=== PATIENT | male | born 1950 | race African-American/Black ===

== ENCOUNTER 2020-04-22 11:04 | Inpatient (IN) | payer MEDICARE, OTHER ==
[~2020-04-22] VITALS: Ht 170.2 cm; Wt 92.5 kg
[~2020-04-22 11:04] MED LIST: AMLO-258 PO; ATEN-72 PO; DICY20 PO; GEMF600T5 PO; GLYB5 PO; HYDR10TA31 PO; OMEP10 PO; PANT-31 PO; PIOG15TA69 PO
[2020-04-22] MEDS ORDERED: NORT10 PO (11:19)
[2020-04-22] MEDS ORDERED: LIDO35.44 TP (11:19)
[2020-04-22] MEDS ORDERED: GLIP10 PO (11:19)
[2020-04-22] MEDS ORDERED: OMEG-178 PO (11:19)
[2020-04-22] MEDS ORDERED: ALFU10TA30 PO (11:19)
[2020-04-22] MEDS ORDERED: CHOL100018 PO (11:19)
[2020-04-22] MEDS ORDERED: CETI1SOL83 PO (11:19)
[2020-04-22] MEDS ORDERED: HYDR-2924 PO (11:19)
[2020-04-22] MEDS ORDERED: MECLIZINE HCL 25 MG TABLET PO ONE (12:30)
[2020-04-22] MEDS ORDERED: SODIUM CHLORIDE 0.9% 500 ML IV ONE (12:30)
[2020-04-22 13:01] LABS: BASOPHILS % (AUTO) 0.8 % (0.0-2.0); EOSINOPHILS % (AUTO) 6.6 % (1.0-6.0); HEMATOCRIT 42.7 % (41-53); HEMOGLOBIN 13.6 g/dL (13.5-17.5); LYMPHOCYTES # (AUTO) 1.1 K/uL (1.0-4.8); LYMPHOCYTES % (AUTO) 26.1 % (22.0-44.0); MEAN CORPUSCULAR HEMOGLOBIN 22.3 pg (26.0-34.0); MEAN CORPUSCULAR HGB CONC 31.8 G/dL (31.0-37.0); MEAN CORPUSCULAR VOLUME 70 fL (80-100); MONOCYTES # (AUTO) 0.5 K/uL (0.1-1.0); MONOCYTES % (AUTO) 11.5 % (2.0-9.0); NEUTROPHILS # (AUTO) 2.2 K/uL (1.8-7.7); PLATELET COUNT (AUTO) 287 K/uL (150-450); RED BLOOD CELL COUNT(AUTO) 6.08 MIL/uL (4.50-5.90); RED CELL DISTRIBUTION WIDTH 16.6 % (11.5-14.5)
[2020-04-22 13:10] LABS: ANION GAP 7 mmol/L (8-16); CALCIUM, TOTAL 8.9 mg/dL (8.8-10.5); CARBON DIOXIDE 30 mmol/L (22-29); CHLORIDE 103 mmol/L (98-107); CREATININE 1.18 mg/dL (0.60-1.30); GLUCOSE,RANDOM 85 mg/dL (70-110); SODIUM SERUM 140 mmol/L (136-145); UREA NITROGEN, BLOOD 9 mg/dL (7-18)
[2020-04-22 13:11] LABS: GLOMERULAR FILTR. RATE CALC > 60 mL/min (>60)
[2020-04-22 13:13] LABS: PROTHROMBIN TIME 10.8 SEC (9.4-11.6)
[2020-04-22] MEDS ORDERED: LORazepam 1 MG TABLET PO ONE (13:30)
[2020-04-22 13:34] LABS: ALANINE AMINOTRANSFERASE 21 U/L (12-78); ALBUMIN 3.4 g/dL (3.4-5.0); ALKALINE PHOSPHATASE 53 U/L (46-116); ASPARTATE AMINOTRANSFERASE 17 U/L (15-37); BILIRUBIN,TOTAL 0.4 mg/dL (0.1-1.0); CREATINE KINASE, TOTAL ONLY 178 U/L (39-308); TOTAL PROTEIN, SERUM 7.2 g/dL (6.4-8.2)
[2020-04-22] MEDS ORDERED: ACETAMINOPHEN 500 MG TABLET PO ONE (13:45)
[2020-04-22] MEDS ORDERED: ONDANSETRON HCL 4 MG/2 ML VIAL IVP PRN ×2 (14:00→20:45)
[2020-04-22] MEDS ORDERED: 0.9% SODIUM CHLORIDE 10 ML SYRINGE IVP PRN (14:00)
[2020-04-22] MEDS ORDERED: ACETAMINOPHEN 325 MG TABLET PO PRN ×2 (14:00→20:45)
[2020-04-22 14:32] LABS: B-TYPE NATRIURETIC PEPTIDE 242 pg/mL (0-100)
[2020-04-22 14:41] LABS: APPEARANCE,URINE CLEAR (CLEAR); BILIRUBIN,URINE NEGATIVE (NEGATIVE); GLUCOSE, URINE (UA) NEGATIVE (NEGATIVE); KETONES,URINE NEGATIVE (NEGATIVE); LEUKOCYTE ESTERASE ,URINE NEGATIVE (NEGATIVE); NITRATE,URINE NEGATIVE (NEGATIVE); OCCULT BLOOD,URINE NEGATIVE (NEGATIVE); PROTEIN,URINE NEGATIVE (NEGATIVE)
[2020-04-22] MEDS ORDERED: LORazepam 2 MG/ML VIAL IVP ONE (15:15)
[2020-04-22 16:58] VITALS: BP 153/73
[2020-04-22 19:50] VITALS: BP 147/82
[2020-04-22] MEDS ORDERED: ALBUTEROL SULFATE 2.5 MG/0.5 ML NEB SOLUTION NEB PRN (20:45)
[2020-04-22] MEDS ORDERED: MAGNESIUM HYDROXIDE SUSPENSION 30 ML UDCUP PO PRN (20:45)
[2020-04-22] MEDS ORDERED: ZOLPIDEM TARTRATE 5 MG TABLET PO PRN (20:45)
[2020-04-22] MEDS ORDERED: MORPHINE SULFATE 2 MG/ML SYRINGE IVP PRN (20:45)
[2020-04-22] MEDS ORDERED: BISACODYL 10 MG RECTAL RECTAL SUPPOSITORY PR PRN (20:45)
[2020-04-22] MEDS ORDERED: IPRATROPIUM BROMIDE 0.5 MG/2.5 ML NEB SOLUTION NEB PRN (20:45)
[2020-04-22] MEDS: DOCUSATE SODIUM 100 MG CAPSULE PO SCH (21:00)
[2020-04-22 23:29] VITALS: BP 142/88
[2020-04-22] MEDS: HydrALAZINE HCL 50 MG TABLET PO SCH (23:45)
[2020-04-22] MEDS: HEPARIN SODIUM,PORCINE 5,000 UNITS/ML VIAL SQ SCH (23:45)
[2020-04-22] MEDS: NORTRIPTYLINE HCL 10 MG CAPSULE PO SCH (23:45)
[2020-04-23 04:29] VITALS: BP 141/74
[2020-04-23] MEDS: GlipiZIDE 10 MG TABLET PO SCH (05:30)
[2020-04-23 06:32] LABS: BASOPHILS % (AUTO) 0.9 % (0.0-2.0); EOSINOPHILS % (AUTO) 8.8 % (1.0-6.0); HEMATOCRIT 40.7 % (41-53); LYMPHOCYTES # (AUTO) 1.3 K/uL (1.0-4.8); MEAN CORPUSCULAR HEMOGLOBIN 22.4 pg (26.0-34.0); MEAN CORPUSCULAR VOLUME 70 fL (80-100); MONOCYTES # (AUTO) 0.5 K/uL (0.1-1.0); MONOCYTES % (AUTO) 10.3 % (2.0-9.0); NEUTROPHILS # (AUTO) 2.2 K/uL (1.8-7.7); PLATELET COUNT (AUTO) 285 K/uL (150-450); RED CELL DISTRIBUTION WIDTH 16.3 % (11.5-14.5)
[2020-04-23 06:55] LABS: ALANINE AMINOTRANSFERASE 17 U/L (12-78); ALBUMIN 2.9 g/dL (3.4-5.0); ALKALINE PHOSPHATASE 44 U/L (46-116); ANION GAP 7 mmol/L (8-16); ASPARTATE AMINOTRANSFERASE 15 U/L (15-37); BILIRUBIN,TOTAL 0.4 mg/dL (0.1-1.0); CALCIUM, TOTAL 8.6 mg/dL (8.8-10.5); CARBON DIOXIDE 29 mmol/L (22-29); CHLORIDE 104 mmol/L (98-107); CREATININE 1.06 mg/dL (0.60-1.30); GLUCOSE,RANDOM 119 mg/dL (70-110); SODIUM SERUM 140 mmol/L (136-145); TOTAL PROTEIN, SERUM 6.5 g/dL (6.4-8.2); UREA NITROGEN, BLOOD 10 mg/dL (7-18)
[2020-04-23 07:09] LABS: GLOMERULAR FILTR. RATE CALC > 60 mL/min (>60)
[2020-04-23 08:01] VITALS: BP 156/104
[2020-04-23] MEDS: ASPIRIN 81 MG EC TABLET PO SCH (08:20)
[2020-04-23] MEDS: PIOGLITAZONE HCL 15 MG TABLET PO SCH (08:20)
[2020-04-23] MEDS: OMEGA-3/DHA/EPA/FISH OIL 1,000 MG CAPSULE PO SCH (08:20)
[2020-04-23] MEDS: HEPARIN SODIUM,PORCINE 5,000 UNITS/ML VIAL SQ SCH ×2 (08:20→15:13)
[2020-04-23] MEDS: DOCUSATE SODIUM 100 MG CAPSULE PO SCH ×2 (08:20→21:44)
[2020-04-23] MEDS: CHOLECALCIFEROL (VIT D3) 2,000 UNITS [50 MCG] TABLET PO SCH (08:20)
[2020-04-23] MEDS: HydrALAZINE HCL 50 MG TABLET PO SCH ×2 (08:21→21:44)
[2020-04-23] MEDS: PANTOPRAZOLE SODIUM 40 MG DR TABLET PO SCH (08:21)
[2020-04-23] MEDS ORDERED: CETIRIZINE HCL 10 MG TABLET PO SCH (09:00)
[2020-04-23] MEDS ORDERED: LORazepam 2 MG/ML VIAL IVP ONE ×2 (10:00→10:30)
[2020-04-23] MEDS ORDERED: MECLIZINE HCL 25 MG TABLET PO PRN (10:00)
[2020-04-23 13:00] VITALS: BP 145/93
[2020-04-23 16:03] VITALS: BP 153/90
[2020-04-23] MEDS ORDERED: CETI-450 PO (18:02)
[2020-04-23 19:46] VITALS: BP 149/85
[2020-04-23] MEDS: NORTRIPTYLINE HCL 10 MG CAPSULE PO SCH (21:44)
[2020-04-24] VITALS (7 sets, daily range): BP systolic 132–159; BP diastolic 64–97
[2020-04-24] MEDS: HEPARIN SODIUM,PORCINE 5,000 UNITS/ML VIAL SQ SCH ×3 (00:53→15:32)
[2020-04-24 05:51] LABS: BASOPHILS % (AUTO) 0.9 % (0.0-2.0); EOSINOPHILS % (AUTO) 7.4 % (1.0-6.0); HEMATOCRIT 41.2 % (41-53); HEMOGLOBIN 13.2 g/dL (13.5-17.5); MEAN CORPUSCULAR HEMOGLOBIN 22.5 pg (26.0-34.0); MEAN CORPUSCULAR HGB CONC 32.2 G/dL (31.0-37.0); MEAN CORPUSCULAR VOLUME 70 fL (80-100); MONOCYTES # (AUTO) 0.7 K/uL (0.1-1.0); MONOCYTES % (AUTO) 12.7 % (2.0-9.0); NEUTROPHILS # (AUTO) 2.6 K/uL (1.8-7.7); PLATELET COUNT (AUTO) 282 K/uL (150-450); RED BLOOD CELL COUNT(AUTO) 5.88 MIL/uL (4.50-5.90); RED CELL DISTRIBUTION WIDTH 16.2 % (11.5-14.5)
[2020-04-24] MEDS: GlipiZIDE 10 MG TABLET PO SCH (06:21)
[2020-04-24 06:46] LABS: ALANINE AMINOTRANSFERASE 18 U/L (12-78); ALBUMIN 2.9 g/dL (3.4-5.0); ALKALINE PHOSPHATASE 45 U/L (46-116); ANION GAP 8 mmol/L (8-16); ASPARTATE AMINOTRANSFERASE 12 U/L (15-37); BILIRUBIN,TOTAL 0.3 mg/dL (0.1-1.0); CALCIUM, TOTAL 8.9 mg/dL (8.8-10.5); CARBON DIOXIDE 28 mmol/L (22-29); CHLORIDE 104 mmol/L (98-107); CREATININE 1.24 mg/dL (0.60-1.30); GLUCOSE,RANDOM 116 mg/dL (70-110); POTASSIUM 3.9 mmol/L (3.5-5.1); SODIUM SERUM 140 mmol/L (136-145); TOTAL PROTEIN, SERUM 6.5 g/dL (6.4-8.2); UREA NITROGEN, BLOOD 16 mg/dL (7-18)
[2020-04-24 06:50] LABS: GLOMERULAR FILTR. RATE CALC > 60 mL/min (>60)
[2020-04-24] MEDS: PIOGLITAZONE HCL 15 MG TABLET PO SCH (08:13)
[2020-04-24] MEDS: ASPIRIN 81 MG EC TABLET PO SCH (08:13)
[2020-04-24] MEDS: DOCUSATE SODIUM 100 MG CAPSULE PO SCH ×2 (08:13→20:11)
[2020-04-24] MEDS: HydrALAZINE HCL 50 MG TABLET PO SCH ×2 (08:13→20:11)
[2020-04-24] MEDS: CETIRIZINE HCL 10 MG TABLET PO SCH (08:13)
[2020-04-24] MEDS: OMEGA-3/DHA/EPA/FISH OIL 1,000 MG CAPSULE PO SCH (08:13)
[2020-04-24] MEDS: CHOLECALCIFEROL (VIT D3) 2,000 UNITS [50 MCG] TABLET PO SCH (08:13)
[2020-04-24] MEDS: PANTOPRAZOLE SODIUM 40 MG DR TABLET PO SCH (08:13)
[2020-04-24] MEDS: HYDROCODONE/ACETAMINOPHEN 5-325 MG TABLET PO PRN (20:11)
[2020-04-24] MEDS: NORTRIPTYLINE HCL 10 MG CAPSULE PO SCH (20:11)
[2020-04-25] MEDS: HEPARIN SODIUM,PORCINE 5,000 UNITS/ML VIAL SQ SCH ×3 (00:56→16:08)
[2020-04-25 04:54] VITALS: BP 136/70
[2020-04-25] MEDS: GlipiZIDE 10 MG TABLET PO SCH (06:53)
[2020-04-25 07:22] VITALS: BP 139/83
[2020-04-25] MEDS: OMEGA-3/DHA/EPA/FISH OIL 1,000 MG CAPSULE PO SCH (08:10)
[2020-04-25] MEDS: ASPIRIN 81 MG EC TABLET PO SCH (08:11)
[2020-04-25] MEDS: CETIRIZINE HCL 10 MG TABLET PO SCH (08:11)
[2020-04-25] MEDS: CHOLECALCIFEROL (VIT D3) 2,000 UNITS [50 MCG] TABLET PO SCH (08:11)
[2020-04-25] MEDS: DOCUSATE SODIUM 100 MG CAPSULE PO SCH ×2 (08:11→21:00)
[2020-04-25] MEDS: PANTOPRAZOLE SODIUM 40 MG DR TABLET PO SCH (08:11)
[2020-04-25] MEDS: HydrALAZINE HCL 50 MG TABLET PO SCH ×2 (08:11→21:01)
[2020-04-25] MEDS: PIOGLITAZONE HCL 15 MG TABLET PO SCH (08:11)
[2020-04-25 11:17] VITALS: BP 151/83
[2020-04-25 16:04] VITALS: BP 143/93
[2020-04-25] MEDS: DiphenhydrAMINE HCL 25 MG CAPSULE PO SCH ×2 (16:08→21:01)
[2020-04-25] MEDS: MethylPREDNISolone SOD SUCC 125 MG/2 ML VIAL IVP SCH (16:08)
[2020-04-25 19:30] VITALS: BP 149/84
[2020-04-25] MEDS ORDERED: FAMOTIDINE 20 MG TABLET PO SCH (21:00)
[2020-04-25] MEDS: NORTRIPTYLINE HCL 10 MG CAPSULE PO SCH (21:01)
[2020-04-25] MEDS: HYDROCODONE/ACETAMINOPHEN 5-325 MG TABLET PO PRN (21:05)
[2020-04-25 21:27] LABS: COVID AG,FIA SOURCE NASOPHARYNGEAL
[2020-04-25 23:26] VITALS: BP 151/79
[2020-04-26] VITALS (18 sets, daily range): BP systolic 146–173; BP diastolic 71–93
[2020-04-26] MEDS: MethylPREDNISolone SOD SUCC 125 MG/2 ML VIAL IVP SCH (00:13)
[2020-04-26 06:14] LABS: BASOPHILS % (AUTO) 0.1 % (0.0-2.0); EOSINOPHILS % (AUTO) 0 % (1.0-6.0); HEMATOCRIT 43.3 % (41-53); HEMOGLOBIN 13.7 g/dL (13.5-17.5); LYMPHOCYTES # (AUTO) 0.8 K/uL (1.0-4.8); LYMPHOCYTES % (AUTO) 9.4 % (22.0-44.0); MEAN CORPUSCULAR HEMOGLOBIN 22.3 pg (26.0-34.0); MEAN CORPUSCULAR HGB CONC 31.7 G/dL (31.0-37.0); MEAN CORPUSCULAR VOLUME 70 fL (80-100); MONOCYTES # (AUTO) 0.1 K/uL (0.1-1.0); MONOCYTES % (AUTO) 0.7 % (2.0-9.0); NEUTROPHILS # (AUTO) 7.3 K/uL (1.8-7.7); PLATELET COUNT (AUTO) 280 K/uL (150-450); RED BLOOD CELL COUNT(AUTO) 6.15 MIL/uL (4.50-5.90); RED CELL DISTRIBUTION WIDTH 16.1 % (11.5-14.5)
[2020-04-26] MEDS: GlipiZIDE 10 MG TABLET PO SCH (06:19)
[2020-04-26 06:33] LABS: INR 1.1 (0.9-1.1); PROTHROMBIN TIME 11.2 SEC (9.4-11.6)
[2020-04-26 06:51] LABS: ALANINE AMINOTRANSFERASE 15 U/L (12-78); ALBUMIN 3.2 g/dL (3.4-5.0); ALKALINE PHOSPHATASE 40 U/L (46-116); ANION GAP 10 mmol/L (8-16); ASPARTATE AMINOTRANSFERASE 19 U/L (15-37); BILIRUBIN,TOTAL 0.4 mg/dL (0.1-1.0); CALCIUM, TOTAL 9.4 mg/dL (8.8-10.5); CARBON DIOXIDE 25 mmol/L (22-29); CHLORIDE 103 mmol/L (98-107); CREATININE 0.93 mg/dL (0.60-1.30); GLOMERULAR FILTR. RATE CALC > 60 mL/min (>60); GLUCOSE,RANDOM 156 mg/dL (70-110); POTASSIUM 4.4 mmol/L (3.5-5.1); SODIUM SERUM 138 mmol/L (136-145); TOTAL PROTEIN, SERUM 7.4 g/dL (6.4-8.2); UREA NITROGEN, BLOOD 16 mg/dL (7-18)
[2020-04-26 06:55] LABS: NEUTROPHILS % (AUTO) 89.8 % (40.0-70.0)
[2020-04-26] MEDS ORDERED: FentaNYL CITRATE-PF 100 MCG/2 ML VIAL ONE (07:18)
[2020-04-26] MEDS ORDERED: MIDAZOLAM HCL 2 MG/2 ML VIAL ONE (07:18)
[2020-04-26] MEDS ORDERED: VERAPAMIL HCL 2.5 MG/ML 2 ML VIAL ONE (07:18)
[2020-04-26] MEDS ORDERED: NITROGLYCERIN 50 MG/D5% WATER 0 ML ONE (07:18)
[2020-04-26] MEDS ORDERED: IOHEXOL 300 MG/ML 150 ML VIAL ONE (07:19)
[2020-04-26] MEDS ORDERED: SODIUM BICARBONATE 50 MEQ/50 ML VIAL ONE (07:19)
[2020-04-26] MEDS ORDERED: LIDOCAINE/PF 1% 30 ML VIAL ONE (07:19)
[2020-04-26] MEDS ORDERED: HEPARIN SODIUM 1000 UNITS/NS 1,000 ML ONE (07:19)
[2020-04-26] MEDS: HEPARIN SODIUM,PORCINE 5,000 UNITS/ML VIAL SQ SCH ×4 (07:38→23:41)
[2020-04-26] MEDS: DiphenhydrAMINE HCL 25 MG CAPSULE PO SCH (07:39)
[2020-04-26] MEDS ORDERED: HEPARIN SODIUM 2,000 UNITS in HEPARIN SODIUM 1000 UNITS/NS 1,000 ML IARTER ONE (08:17)
[2020-04-26] MEDS ORDERED: IOHEXOL 300 MG/ML 150 ML VIAL IARTER ONE (08:30)
[2020-04-26] MEDS ORDERED: LIDOCAINE 1% 30 ML/SOD BICARB 8.4% 4 ML SQ ONE (08:30)
[2020-04-26] MEDS: PIOGLITAZONE HCL 15 MG TABLET PO SCH (09:23)
[2020-04-26] MEDS: DOCUSATE SODIUM 100 MG CAPSULE PO SCH ×2 (09:23→20:35)
[2020-04-26] MEDS: HydrALAZINE HCL 50 MG TABLET PO SCH (09:23)
[2020-04-26] MEDS: CETIRIZINE HCL 10 MG TABLET PO SCH (09:23)
[2020-04-26] MEDS: PANTOPRAZOLE SODIUM 40 MG DR TABLET PO SCH (09:23)
[2020-04-26] MEDS: OMEGA-3/DHA/EPA/FISH OIL 1,000 MG CAPSULE PO SCH (09:23)
[2020-04-26] MEDS: ASPIRIN 81 MG EC TABLET PO SCH (09:23)
[2020-04-26] MEDS: CHOLECALCIFEROL (VIT D3) 2,000 UNITS [50 MCG] TABLET PO SCH (09:23)
[2020-04-26] MEDS: HYDROCODONE/ACETAMINOPHEN 5-325 MG TABLET PO PRN (12:17)
[2020-04-26] MEDS: LISINOPRIL 5 MG TABLET PO SCH (17:02)
[2020-04-26] MEDS: HydrALAZINE HCL 25 MG TABLET PO SCH ×2 (17:04→21:15)
[2020-04-26] MEDS: ATORVASTATIN CALCIUM 40 MG TABLET PO SCH (17:04)
[2020-04-26] MEDS ORDERED: CARVEDILOL 3.125 MG TABLET PO SCH (21:00)
[2020-04-26] MEDS: NORTRIPTYLINE HCL 10 MG CAPSULE PO SCH (21:03)
[2020-04-27] VITALS (13 sets, daily range): BP systolic 132–161; BP diastolic 36–86
[2020-04-27 06:00] LABS: BASOPHILS % (AUTO) 0.1 % (0.0-2.0); EOSINOPHILS % (AUTO) 0 % (1.0-6.0); HEMATOCRIT 40.7 % (41-53); HEMOGLOBIN 13.1 g/dL (13.5-17.5); LYMPHOCYTES # (AUTO) 1.9 K/uL (1.0-4.8); MEAN CORPUSCULAR HEMOGLOBIN 22.4 pg (26.0-34.0); MEAN CORPUSCULAR HGB CONC 32.2 G/dL (31.0-37.0); MEAN CORPUSCULAR VOLUME 70 fL (80-100); MONOCYTES # (AUTO) 0.9 K/uL (0.1-1.0); MONOCYTES % (AUTO) 6.7 % (2.0-9.0); NEUTROPHILS % (AUTO) 78.2 % (40.0-70.0); PLATELET COUNT (AUTO) 274 K/uL (150-450); RED BLOOD CELL COUNT(AUTO) 5.85 MIL/uL (4.50-5.90)
[2020-04-27 06:12] LABS: INR 1.1 (0.9-1.1); PROTHROMBIN TIME 11.1 SEC (9.4-11.6)
[2020-04-27] MEDS: GlipiZIDE 10 MG TABLET PO SCH (06:30)
[2020-04-27 06:49] LABS: ALANINE AMINOTRANSFERASE 24 U/L (12-78); ALBUMIN 3.1 g/dL (3.4-5.0); ALKALINE PHOSPHATASE 40 U/L (46-116); ANION GAP 8 mmol/L (8-16); ASPARTATE AMINOTRANSFERASE 22 U/L (15-37); BILIRUBIN,TOTAL 0.3 mg/dL (0.1-1.0); CALCIUM, TOTAL 9.2 mg/dL (8.8-10.5); CARBON DIOXIDE 27 mmol/L (22-29); CHLORIDE 103 mmol/L (98-107); CREATININE 1.19 mg/dL (0.60-1.30); GLUCOSE,RANDOM 131 mg/dL (70-110); POTASSIUM 4.1 mmol/L (3.5-5.1); SODIUM SERUM 138 mmol/L (136-145); TOTAL PROTEIN, SERUM 6.6 g/dL (6.4-8.2); UREA NITROGEN, BLOOD 28 mg/dL (7-18)
[2020-04-27 06:55] LABS: GLOMERULAR FILTR. RATE CALC > 60 mL/min (>60)
[2020-04-27] MEDS: HEPARIN SODIUM,PORCINE 5,000 UNITS/ML VIAL SQ SCH ×3 (08:00→23:13)
[2020-04-27] MEDS: CHOLECALCIFEROL (VIT D3) 2,000 UNITS [50 MCG] TABLET PO SCH (11:03)
[2020-04-27] MEDS: PANTOPRAZOLE SODIUM 40 MG DR TABLET PO SCH (11:03)
[2020-04-27] MEDS: DOCUSATE SODIUM 100 MG CAPSULE PO SCH ×2 (11:03→20:34)
[2020-04-27] MEDS: CETIRIZINE HCL 10 MG TABLET PO SCH (11:03)
[2020-04-27] MEDS: CARVEDILOL 6.25 MG TABLET PO SCH ×2 (11:03→20:34)
[2020-04-27] MEDS: HydrALAZINE HCL 25 MG TABLET PO SCH ×3 (11:03→20:34)
[2020-04-27] MEDS: LISINOPRIL 5 MG TABLET PO SCH (11:04)
[2020-04-27] MEDS: OMEGA-3/DHA/EPA/FISH OIL 1,000 MG CAPSULE PO SCH (11:04)
[2020-04-27] MEDS: ATORVASTATIN CALCIUM 40 MG TABLET PO SCH (11:04)
[2020-04-27] MEDS ORDERED: MIDAZOLAM HCL 2 MG/2 ML VIAL IVP ONE (12:00)
[2020-04-27] MEDS ORDERED: FentaNYL CITRATE-PF 100 MCG/2 ML VIAL IVP ONE (12:00)
[2020-04-27] MEDS ORDERED: LIDOCAINE/PF 1% 30 ML VIAL ONE ×2 (12:48→14:11)
[2020-04-27] MEDS ORDERED: SODIUM BICARBONATE 50 MEQ/50 ML VIAL ONE (12:48)
[2020-04-27] MEDS ORDERED: DiphenhydrAMINE HCL 50 MG/ML VIAL ONE (13:28)
[2020-04-27] MEDS ORDERED: MethylPREDNISolone SOD SUCC 125 MG/2 ML VIAL ONE (13:28)
[2020-04-27] MEDS ORDERED: DiphenhydrAMINE HCL 50 MG/ML VIAL IVP ONE (14:00)
[2020-04-27] MEDS ORDERED: LIDOCAINE 1% 30 ML/SOD BICARB 8.4% 4 ML SQ ONE (14:00)
[2020-04-27] MEDS ORDERED: MethylPREDNISolone SOD SUCC 125 MG/2 ML VIAL IVP ONE (14:00)
[2020-04-27] MEDS ORDERED: BUPIVACAINE LIPOSOME/PF 1.3%-13.3MG/ML SUSPENSION 10 ML VIAL INJ ONE (14:15)
[2020-04-27] MEDS: PIOGLITAZONE HCL 15 MG TABLET PO SCH (16:17)
[2020-04-27] MEDS: HYDROCODONE/ACETAMINOPHEN 5-325 MG TABLET PO PRN ×2 (16:19→20:57)
[2020-04-27] MEDS: ASPIRIN 81 MG EC TABLET PO SCH (16:20)
[2020-04-27] MEDS: NORTRIPTYLINE HCL 10 MG CAPSULE PO SCH (20:34)
[2020-04-27] MEDS: CeFAZolin 1 GM/DEXTROSE 50 ML IV SCH (20:35)
[2020-04-27] MEDS ORDERED: SODIUM CHLORIDE 0.9% 250 ML IV ONE (20:40)
[2020-04-27] MEDS ORDERED: CARVEDILOL 6.25 MG TABLET PO SCH (21:00)
[2020-04-28] MEDS: CeFAZolin 1 GM/DEXTROSE 50 ML IV SCH ×2 (01:30→07:43)
[2020-04-28] MEDS: HYDROCODONE/ACETAMINOPHEN 5-325 MG TABLET PO PRN ×2 (01:35→10:05)
[2020-04-28 04:36] VITALS: BP 137/79
[2020-04-28] MEDS: GlipiZIDE 10 MG TABLET PO SCH (05:19)
[2020-04-28 07:18] LABS: BASOPHILS % (AUTO) 0.2 % (0.0-2.0); EOSINOPHILS % (AUTO) 0 % (1.0-6.0); HEMATOCRIT 40.6 % (41-53); HEMOGLOBIN 12.9 g/dL (13.5-17.5); LYMPHOCYTES # (AUTO) 1.7 K/uL (1.0-4.8); LYMPHOCYTES % (AUTO) 13.5 % (22.0-44.0); MEAN CORPUSCULAR HEMOGLOBIN 22.2 pg (26.0-34.0); MEAN CORPUSCULAR HGB CONC 31.9 G/dL (31.0-37.0); MEAN CORPUSCULAR VOLUME 70 fL (80-100); MONOCYTES # (AUTO) 0.5 K/uL (0.1-1.0); MONOCYTES % (AUTO) 4.3 % (2.0-9.0); NEUTROPHILS # (AUTO) 10.2 K/uL (1.8-7.7); PLATELET COUNT (AUTO) 243 K/uL (150-450); RED BLOOD CELL COUNT(AUTO) 5.83 MIL/uL (4.50-5.90); RED CELL DISTRIBUTION WIDTH 16.4 % (11.5-14.5)
[2020-04-28 07:32] LABS: ANION GAP 5 mmol/L (8-16); CARBON DIOXIDE 30 mmol/L (22-29); CHLORIDE 103 mmol/L (98-107); CREATININE 1.13 mg/dL (0.60-1.30); GLOMERULAR FILTR. RATE CALC > 60 mL/min (>60); GLUCOSE,RANDOM 121 mg/dL (70-110); POTASSIUM 4.3 mmol/L (3.5-5.1); SODIUM SERUM 138 mmol/L (136-145); UREA NITROGEN, BLOOD 26 mg/dL (7-18)
[2020-04-28] MEDS: OMEGA-3/DHA/EPA/FISH OIL 1,000 MG CAPSULE PO SCH (07:45)
[2020-04-28] MEDS: ASPIRIN 81 MG EC TABLET PO SCH (07:45)
[2020-04-28] MEDS: CARVEDILOL 6.25 MG TABLET PO SCH (07:46)
[2020-04-28] MEDS: HydrALAZINE HCL 25 MG TABLET PO SCH (07:46)
[2020-04-28] MEDS: ATORVASTATIN CALCIUM 40 MG TABLET PO SCH (07:46)
[2020-04-28] MEDS: HEPARIN SODIUM,PORCINE 5,000 UNITS/ML VIAL SQ SCH (07:46)
[2020-04-28] MEDS: CHOLECALCIFEROL (VIT D3) 2,000 UNITS [50 MCG] TABLET PO SCH (07:47)
[2020-04-28] MEDS: PIOGLITAZONE HCL 15 MG TABLET PO SCH (07:47)
[2020-04-28] MEDS: CETIRIZINE HCL 10 MG TABLET PO SCH (07:47)
[2020-04-28] MEDS: PANTOPRAZOLE SODIUM 40 MG DR TABLET PO SCH (07:47)
[2020-04-28] MEDS: LISINOPRIL 5 MG TABLET PO SCH (07:47)
[2020-04-28] MEDS: DOCUSATE SODIUM 100 MG CAPSULE PO SCH (07:47)
[2020-04-28 08:04] VITALS: BP 170/94
[2020-04-28] MEDS ORDERED: ASPI-728 PO (12:50)
[2020-04-28] MEDS ORDERED: CARV12 PO (12:51)
[2020-04-28] MEDS ORDERED: HYDR-2924 PO (12:51)
[2020-04-28] MEDS ORDERED: ATOR40TA28 PO (12:51)
[2020-04-28] MEDS ORDERED: LISI-661 PO (12:52)
[2020-04-28] MEDS ORDERED: HYDR-4061 PO (12:58)
[2020-04-28] MEDS ORDERED: CARVEDILOL 12.5 MG TABLET PO SCH (21:00)
[2020-04-29] MEDS ORDERED: LISINOPRIL 10 MG TABLET PO SCH (09:00)
== END 2020-04-28 14:38 | disposition home or self-care (01) | DRG 226 ==
LOC: EMS 11:14 → 5S 16:04 → UNDOADMIN 16:04 → 5S 16:05
PROVIDERS: ADMIT Hospitalist; ATTEND Hospitalist
PROC: 0JH608Z Insertion of Defibrillator Generator into Chest Subcutaneous Tissue and Fascia, Open Approach (ICD-10-PCS; principal; 2020-04-27)
PROC: 0JH60FZ Insertion of Subcutaneous Defibrillator Lead into Chest Subcutaneous Tissue and Fascia, Open Approach (ICD-10-PCS; 2020-04-27)
PROC: 4B02XTZ Measurement of Cardiac Defibrillator, External Approach (ICD-10-PCS; 2020-04-28)
DX: I11.0 Hypertensive heart disease with heart failure (principal); E43 Unspecified severe protein-calorie malnutrition; I47.2 Ventricular tachycardia; I50.23 Acute on chronic systolic (congestive) heart failure; E11.9 Type 2 diabetes mellitus without complications; I25.10 Atherosclerotic heart disease of native coronary artery without angina pectoris; I42.8 Other cardiomyopathies; R51.9 Headache, unspecified; M19.90 Unspecified osteoarthritis, unspecified site; Z88.7 Allergy status to serum and vaccine; Z91.041 Radiographic dye allergy status; Z79.899 Other long term (current) drug therapy; Z68.31 Body mass index [BMI] 31.0-31.9, adult; Z03.818 Encounter for observation for suspected exposure to other biological agents ruled out
CPT/HCPCS: 33249; 70450; 70551; 76000; 83735; 84145; 87426; 93005; 93306; 93880; 93971; 97110; 97116; 97162; 97165; 97530; 97535; J0690; J1200; J1644; J2060; J2250; J2270; J2930; J3010; J3490; J7040; J7050; Q9967; 36415-L1; 36415-TC; 71045-TC; 71046; 71046-TC; 81003-TC; Z7610

== ENCOUNTER → 2020-06-12 | Outpatient (CLI) | payer MEDICARE, OTHER ==
[~2020-06-12] VITALS: Ht 167.6 cm; Wt 94.0 kg
[~2020-06-12] MED LIST changes: -AMLO-258 PO; +ASPI-728 PO; -ATEN-72 PO; +ATOR40TA28 PO; +CARV12 PO; +CETI-450 PO; +CHOL100018 PO; -DICY20 PO; -GEMF600T5 PO; +GLIP10 PO; -GLYB5 PO; +HYDR-2924 PO; +HYDR-4061 PO; -HYDR10TA31 PO; +LISI-661 PO; +NORT10 PO; +OMEG-178 PO; -OMEP10 PO
[2020-06-12 10:20] VITALS: BP 144/72
== END | disposition home or self-care (01) ==
LOC: SRCNTR 10:18
PROVIDERS: ATTEND Internal Medicine Clinical Cardiac Electrophysiology
DX: Z45.02 Encounter for adjustment and management of automatic implantable cardiac defibrillator (principal)
CPT/HCPCS: 93289; G0463

== ENCOUNTER → 2020-08-07 | Outpatient (CLI) | payer MEDICARE, OTHER ==
[~2020-08-07] VITALS: Ht 172.7 cm; Wt 89.0 kg
[2020-08-07 10:10] VITALS: BP 152/73
== END | disposition home or self-care (01) ==
LOC: SRCNTR 10:06
PROVIDERS: ATTEND Internal Medicine Clinical Cardiac Electrophysiology
DX: Z45.02 Encounter for adjustment and management of automatic implantable cardiac defibrillator (principal)
CPT/HCPCS: 93289; G0463

== ENCOUNTER → 2020-09-11 | Outpatient (CLI) | payer MEDICARE, OTHER ==
[~2020-09-11] VITALS: Ht 167.6 cm; Wt 95.0 kg
[~2020-09-11] MED LIST changes: +ASPI-1450 PO; -ASPI-728 PO; -LISI-661 PO; +LISI-893 PO
[2020-09-11 10:05] VITALS: BP 148/75
== END | disposition home or self-care (01) ==
LOC: SRCNTR 09:56
PROVIDERS: ATTEND Internal Medicine Clinical Cardiac Electrophysiology
DX: I11.0 Hypertensive heart disease with heart failure (principal); I50.9 Heart failure, unspecified; E11.9 Type 2 diabetes mellitus without complications; M19.90 Unspecified osteoarthritis, unspecified site
CPT/HCPCS: G0463; Z7500

== ENCOUNTER → 2020-10-05 | Outpatient (CLI) | payer MEDICARE, OTHER ==
[~2020-10-05] VITALS: Ht 167.6 cm; Wt 95.9 kg
[~2020-10-05] MED LIST changes: -CHOL100018 PO; +CHOL100044 PO; -HYDR-2924 PO; +HYDR50TA36 PO
[2020-10-05 09:57] VITALS: BP 148/71
== END | disposition home or self-care (01) ==
LOC: SRCNTR 09:49
PROVIDERS: ATTEND Internal Medicine Clinical Cardiac Electrophysiology
DX: Z45.02 Encounter for adjustment and management of automatic implantable cardiac defibrillator (principal)
CPT/HCPCS: 93289; G0463; Q3014

== ENCOUNTER 2020-11-11 03:48 | Emergency (ER) | payer MEDICARE, OTHER ==
[~2020-11-11] VITALS: Ht 170.2 cm; Wt 92.3 kg
[2020-11-11 04:53] LABS: ABG A-A DIFF O2 10.5 mmHg (10-20.0); ABG BASE EXCESS 5.9 mmol/L (-2.0-3.0); ABG CARBOXYHEMOGLOBIN 0.4 % (0.0-1.5); ABG HCO3 28.7 mmol/L (22.0-26.0); ABG METHEMOGLOBIN 0.3 % (0.0-1.5); ABG OXYGEN CONTENT 17.1 mL/dL (15.0-23.0); ABG OXYGEN SATURATION 95.5 % (95.0-98.0); ABG OXYHEMOGLOBIN 94.8 % (94.0-100.0); ABG PCO2 52 mmHg (35-45); ABG PH 7.393 (7.35-7.450); ABG TOTAL HEMOGLOBIN 12.8 G/dL (12.0-18.0); O2 DEVICE,BLOOD GAS ROOM AIR (ROOM AIR); PO2, ARTERIAL BG 77.5 mmHg (75.0-83.0); SITE, BLOOD GAS LFT RADIAL; SOURCE, BLOOD GAS ARTERIAL; TEMPERATURE, FAHRENHEIT, BG 98.4 FAHREN (96.0-98.6)
[2020-11-11 05:26] VITALS: BP 132/88
== END 2020-11-11 05:38 | disposition home or self-care (01) ==
LOC: EMS 03:52
DX: R42 Dizziness and giddiness (principal); E11.9 Type 2 diabetes mellitus without complications; I10 Essential (primary) hypertension; Z77.098 Contact with and (suspected) exposure to other hazardous, chiefly nonmedicinal, chemicals; Z87.891 Personal history of nicotine dependence; Z91.041 Radiographic dye allergy status; Z79.82 Long term (current) use of aspirin; Z79.899 Other long term (current) drug therapy
CPT/HCPCS: 82805; 82962; 93005; 99284

== ENCOUNTER → 2020-11-30 | Outpatient (CLI) | payer MEDICARE | END | disposition home or self-care (01) | LOC: SRCNTR 10:48 | PROVIDERS: ATTEND Internal Medicine Clinical Cardiac Electrophysiology | DX: Z45.018 Encounter for adjustment and management of other part of cardiac pacemaker (principal) | CPT/HCPCS: 93289; G0463 ==

== ENCOUNTER → 2021-01-18 | Outpatient (CLI) | payer MEDICARE ==
[~2021-01-18] MED LIST changes: +CHOL-35 PO; -CHOL100044 PO
[2021-01-18 14:01] VITALS: BP 154/77
== END | disposition home or self-care (01) ==
LOC: SRCNTR 10:52
PROVIDERS: ATTEND Internal Medicine Clinical Cardiac Electrophysiology
DX: Z09 Encounter for follow-up examination after completed treatment for conditions other than malignant neoplasm (principal); Z95.810 Presence of automatic (implantable) cardiac defibrillator

== ENCOUNTER → 2021-03-19 | Outpatient (CLI) | payer MEDICARE ==
[2021-03-19 10:30] VITALS: BP 123/75
== END | disposition home or self-care (01) ==
LOC: SRCNTR 10:06
PROVIDERS: ATTEND Internal Medicine Clinical Cardiac Electrophysiology
DX: Z95.810 Presence of automatic (implantable) cardiac defibrillator (principal)
CPT/HCPCS: 93289; G0463